=== PATIENT | male | born 1955 | race Caucasian/White ===

== ENCOUNTER 2017-03-09 12:58 | Outpatient (CLI) | payer MEDICARE ==
[~2017-03-09] VITALS: Ht 175.3 cm; Wt 127.0 kg
[~2017-03-09 12:58] MED LIST: ASP81CT PO; DILT180C82 PO; HYDR118S10 PO; LOSA100T7 PO; METFOR850T PO; SIMV20TA3 PO
[2017-03-10] MEDS ORDERED: OXYC-197 PO (09:07)
== END 2017-03-09 15:45 ==
LOC: PREOP 12:58
PROVIDERS: ATTEND Surgery
DX: Z01.818 Encounter for other preprocedural examination (principal); K62.89 Other specified diseases of anus and rectum; K62.5 Hemorrhage of anus and rectum

== ENCOUNTER 2017-03-10 05:48 | Day surgery (SDC) | payer MEDICARE ==
[~2017-03-10] VITALS: Ht 175.3 cm; Wt 127.0 kg
[2017-03-10 07:05] VITALS: BP 138/78
[2017-03-10] MEDS: LACTATED RINGERS 1,000 ML IV PRN ×2 (07:05→08:50)
[2017-03-10] MEDS ORDERED: proPOfol 200 MG/20 ML (DIPRIVAN) VIAL IV ONE ×2 (07:09→08:17)
[2017-03-10] MEDS ORDERED: ONDANSETRON 4 MG/2 ML (SDV) Z0FRAN ONE (07:09)
[2017-03-10] MEDS ORDERED: LACTATED RINGERS 1,000 ML IV ONE ×2 (07:09→08:48)
[2017-03-10] MEDS ORDERED: LIDOCAINE PF 2% 10 ML (XYLOCAINE) AMP ONE (07:09)
[2017-03-10] MEDS ORDERED: MIDAZOLAM 2 MG/2 ML (VERSED) VIAL ONE (07:10)
[2017-03-10] MEDS ORDERED: fentaNYL INJECTION 100 MCG/2 ML AMP ONE ×3 (07:10→08:07)
[2017-03-10] MEDS ORDERED: BUP/EPI 0.25% 1:200,000 (MARCAINE) 30 ML VIAL ONE (07:12)
[2017-03-10] MEDS ORDERED: ceFAZolin 2 GM/NS 50 ML IV ONE (07:15)
[2017-03-10] MEDS ORDERED: SEVOFLURANE (ULTANE) 15 ML INHAL SOLN ONE ×6 (07:15→08:48)
--- NOTE | 2017-03-10 07:21 | Progress Note-Pre Operative ---
Pre-Operative Progress Note H&P Reviewed The H&P was reviewed, patient examined and no changes noted. Date H&P Reviewed: March 10, 2017 Time H&P Reviewed: 07:20 Pre-Operative Diagnosis: 1.Thrombosed hemorrhoid 2. Personal H/O polyps ROYCE GARRETT MD March 10, 2017 7:21 am
[2017-03-10] MEDS ORDERED: fentaNYL INJECTION 100 MCG/2 ML AMP IV ONE (07:30)
[2017-03-10] MEDS ORDERED: morphine INJ 10 MG/ML 1ML (SYR OR VIAL) ONE (08:47)
[2017-03-10] MEDS ORDERED: NEOSPORIN + PAIN RELIEF CREAM 15 GM ONE (08:49)
[2017-03-10] MEDS ORDERED: NEOSPORIN + PAIN RELIEF CREAM 15 GM TOP SCH (09:00)
--- NOTE | 2017-03-10 09:06 | Progress Note-Post Operative ---
Post-Operative Progess Note Surgeon (s)/Paving And Surfacing Labourer (s) Surgeon ROYCE GARRETT MD Paving And Surfacing Labourer: Not applicable Pre-Operative Diagnosis 1.Thrombosed hemorrhoid 2. Personal H/O polyps Post-Operative Diagnosis Rectal polyps Times 2. Sigmoid diverticulosis Thrombosed external and internal hemorrhoid at 7 o'clock position Most external hemorrhoidectomy 3 o' Procedure & Operative Findings Date of Procedure 03/10/17 Procedure Preformed/Findings colonoscopy to cecum. Polypectomy 2.hemorrhoidectomy 2 Anesthesia Type Gen. Estimated Blood Loss Estimated blood loss (mL): 25 mL Specimens/Packing Specimens Removed hemorrhoid tissue Packing: None ROYCE GARRETT MD March 10, 2017 9:06 am
[2017-03-10] MEDS ORDERED: OXYC-197 PO (09:07)
--- NOTE | 2017-03-10 09:08 | Discharge Inst-Simple/Standard ---
Discharge Inst-Standard Discharge Medications New, Converted or Re-Newed RX: RX on Chart Patient Instructions/Follow Up Plan of Care/Instructions/FU: Stool softeners. Follow-up in 3 weeks Activity as Tolerated: No Goal: No lifting Discharge Diet: No Restrictions, ADA Diet ROYCE GARRETT MD March 10, 2017 9:08 am
[2017-03-10] MEDS ORDERED: HYDROmorphone (DILAUDID) 2 MG/ML VIAL ONE (09:10)
[2017-03-10] MEDS ORDERED: ONDANSETRON 4 MG/2 ML (SDV) Z0FRAN IVP PRN (09:15)
[2017-03-10] MEDS ORDERED: MEPERIDINE (DEMEROL) INJ 50 MG/ML IVP PRN (09:15)
[2017-03-10] MEDS: HYDROmorphone (DILAUDID) 2 MG/ML VIAL IVP PRN ×3 (09:18→09:38)
[2017-03-10 10:10] VITALS: BP 155/83
[2017-03-10 10:40] VITALS: BP 150/82
[2017-03-10] MEDS ORDERED: oxyCODONE/APAP 5/325MG (PERCOCET 5) TABLET PO ONE (10:45)
[2017-03-10 11:10] VITALS: BP 127/83
[2017-03-10 12:10] VITALS: BP 127/83
--- NOTE | 2017-03-11 04:36 | OPERATIVE REPORT ---
DATE OF SERVICE: 03/10/2017 PREOPERATIVE DIAGNOSES: 1. Personal history of polyps. 2. Thrombosed external hemorrhoids. POSTOPERATIVE DIAGNOSES: 1. Rectal polyps x2. 2. Sigmoid diverticulosis. 3. Thrombosed internal hemorrhoids at 7 o'clock position. 4. Thrombosed external hemorrhoids at 3 o'clock position. OPERATIONS PERFORMED: 1. Colonoscopy to cecum. 2. Polypectomy (hot biopsy) x2. 3. Hemorrhoidectomy x2 (3 and 7 o'clock position). SURGEON: Dr. Royce Garrett ANESTHESIA: General anesthesia. ESTIMATED BLOOD LOSS: 25 mL. FLUIDS: 1 L of crystalloids. TYPE OF WOUND: Type 3 (contaminated wound). INDICATIONS FOR PROCEDURE: This gentleman was found to have adenomatous polyps about 2-1/2 years ago and was due for surveillance colonoscopy. He presented with what appeared to be a thrombosed external hemorrhoid about a week ago, that was managed as an outpatient. He continued to suffer pain deep in his rectum, and therefore it was felt reasonable to perform an examination under anesthetic, complete surveillance colonoscopy and possibly perform conventional hemorrhoidectomy. Informed consent was obtained after reviewing the operative details and complications of postoperative urinary retention, secondary hemorrhage and recurrence of hemorrhoids. DESCRIPTION OF PROCEDURE: He underwent mechanical bowel preparation including oral antibiotics the day before surgery. He was initially placed supine on the operating table and general anesthesia induced. Ancef 2 g and 500 mg of Flagyl were administered intravenously as prophylaxis against infection. Subsequently, he was placed in combined lithotomy position, his legs being supported on stirrups. 1. EXAMINATION UNDER ANESTHETIC: In addition to the previously noted thrombosed external hemorrhoid at 3 o'clock position, a large thrombosed internal hemorrhoid along with an external component was found at 7 o'clock position. 2. COLONOSCOPY AND POLYPECTOMY: The flexible colonoscope was introduced into the rectum and advanced all the way up to the cecum. The quality of bowel preparation was excellent. The scope was then withdrawn slowly and the mucosa examined in a systematic fashion. FINDINGS: 1. Two polyps about a millimeter each, adjacent to each other, at the distal rectum. These were excised with hot biopsy forceps and sent as one specimen. 2. Quite significant and severe sigmoid diverticulosis. HEMORRHOIDECTOMY:. Initially, we addressed the hemorrhoid at 7 o'clock position. The pedicle was isolated by making a V-shape incision along the perianal skin, protecting the sphincter muscle. The pedicle of the hemorrhoidAL tissue was then transfixed with 0 Vicryl suture, and the hemorrhoids were excised using Harmonic scalpel. The defect over the skin was loosely approximated with a 4-0 Vicryl suture. With regard to the hemorrhoid at 3 o'clock position, a similar procedure was performed. It was much smaller than the one at 7 o'clock position. The hemorrhoidal tissue was sent separately for histological confirmation. Preemptive analgesia was established using 0.25% Marcaine with epinephrine. The operative site was covered with Nupercaine ointment to achieve postoperative comfort. He tolerated the procedure well, was extubated and taken to the recovery room in a stable condition. Job ID: [id number] DocumentID: [id number] Dictated Date: 03/10/2017 08:59:37 Ux Manager Date: 03/11/2017 00:41:04 Dictated By: ROYCE GARRETT MD MTDD
== END 2017-03-10 12:10 | disposition home or self-care (01) ==
LOC: SDC 05:48
PROVIDERS: ATTEND Surgery
DX: K62.1 Rectal polyp (principal); K57.30 Diverticulosis of large intestine without perforation or abscess without bleeding; K64.5 Perianal venous thrombosis; K64.8 Other hemorrhoids
CPT/HCPCS: 82962; 87081